=== PATIENT | female | born 1995 | race Two or more races ===

== ENCOUNTER 2025-05-27 21:26 | Emergency (ER) | payer OTHER ==
[~2025-05-27] VITALS: Ht 162.6 cm; Wt 44.9 kg
[2025-05-27] MEDS ORDERED: DIPHTH,PERTUSS(ACELL),TET VAC 0.5 ML SYRINGE IM STA (23:29)
[2025-05-27] MEDS ORDERED: CEPHALEXIN500 MG PO (23:39)
[2025-05-27] MEDS ORDERED: MUPIROCIN1 G1 TOP (23:40)
== END 2025-05-28 00:41 ==
LOC: ER 21:27
DX: M79.662 Pain in left lower leg (principal)
CPT/HCPCS: 90471; 90714; J1670